=== PATIENT | male | born 1975 | race Caucasian/White ===

== ENCOUNTER 2017-07-08 21:54 | Emergency (ER) | payer OTHER ==
[~2017-07-08] VITALS: Ht 175.3 cm; Wt 96.1 kg
[~2017-07-08 21:54] MED LIST: ALBUTEROL17 GM IH
[2017-07-09] MEDS ORDERED: MEDROL DOSEPAK4 MG PO (00:59)
[2017-07-09] MEDS ORDERED: NORCO 5/3251 TABLET PO (00:59)
[2017-07-09 01:36] VITALS: BP 145/85
== END 2017-07-09 01:37 | disposition home or self-care (01) ==
LOC: EME 21:54
DX: M54.2 Cervicalgia (principal); S40.012A Contusion of left shoulder, initial encounter; Z98.1 Arthrodesis status; W19.XXXA Unspecified fall, initial encounter; F17.200 Nicotine dependence, unspecified, uncomplicated; Z88.5 Allergy status to narcotic agent
CPT/HCPCS: 72125; 73030; 99281; 99283; J7512